=== PATIENT | male | born 1995 | race Asian ===

== ENCOUNTER 2021-01-15 04:29 | Emergency (ER) | payer SELFPAY ==
[~2021-01-15] VITALS: Ht 167.6 cm; Wt 72.6 kg
[2021-01-15 04:42] VITALS: BP 118/76
--- NOTE | 2021-01-15 04:54 | NUR ---
pt aox3. c/o nausea. medicated per mar
--- NOTE | 2021-01-15 04:56 | Emergency Room Report ---
History of Present Illness General Chief Complaint: Nausea Source: Patient Present Illness HPI The patient presents complaining of nausea, without vomiting or abdominal discomfort. This began after eating a meal with other people who have become ill also. 5 of 8 friends had nausea and vomiting. He denies any fevers or chills. There is no diarrhea. The patient denies dysuria. He has no pain in his stomach. He was drinking wine tonight. No medications have been taken. He feels better at this time. Patient denies exposure to Covid positive contacts. 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[place] Reviewed Nursing Documentation: PMH: Agreed; PSxH: Agreed Review of Systems Constitutional: Reports: see HPI Gastrointestinal: Reports: see HPI Genitourinary: Reports: see HPI Neurological: Denies: headache, dizziness Physical Exam Vital Signs Date Time Temp Pulse Resp B/P (MAP) Pulse Ox O2 Delivery O2 Flow Rate FiO2 01/15/21 04:32 98.6 80 20 118/76 (90) 96 Room Air Sp02 EP Interpretation: reviewed, normal General Appearance: well appearing, no apparent distress, GCS 15 Head: normocephalic Eyes: bilateral eye normal inspection, bilateral eye PERRL, bilateral eye EOMI ENT: moist mucus membranes Cardiovascular #1: regular rate, rhythm Gastrointestinal: normal inspection, normal bowel sounds, non tender, soft Genitourinary: no CVA tenderness Musculoskeletal: gait/station normal Neurologic: alert, grossly normal Psychiatric: mood/affect normal Skin: normal color, no rash, warm/dry Medical Decision Making Diagnostic Impression: Primary Impression: Food poisoning Additional Impression: Nausea ER Course The patient presents with nausea without vomiting or abdominal pain after eating food where others have become ill in a similar manner. Differential includes food poisoning, gastroenteritis, gastritis, early amongst others. As the patient is feeling better at this time no labs are indicated. The patient will be treated with Zofran. Improved after treatment here. Discussed findings with patient and treatment plan. Discussed the need for reevaluation if the patient worsens. Patient stable for outpatient observation and treatment. Status: improved Disposition: HOME, SELF-CARE Condition: Improved Scripts Ondansetron Odt* (ZOFRAN ODT*) 4 Mg Tab.rapdis 4 MG BC EVERY 8 HOURS, #4 TAB 0 Refills Prov: Jaxon Guillermo MD 01/15/21 Referrals: NOT CHOSEN IPA/,REFERRING (PCP) Jaxon Guillermo MD Jan 15, 2021 04:56
[2021-01-15] MEDS ORDERED: ONDANSETRON ODT4 MG BC (04:58)
--- NOTE | 2021-01-15 04:58 | NUR ---
pt aox3 given and understands discharge instructions. ambulatory out w steady gait
== END 2021-01-15 05:00 | disposition home or self-care (01) ==
LOC: EMR 04:45
DX: A05.9 Bacterial foodborne intoxication, unspecified (principal)
CPT/HCPCS: 99282